=== PATIENT | female | born 2000 | race Caucasian/White ===

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

== ENCOUNTER 2019-05-11 18:26 | Emergency (ER) | payer OTHER ==
[2019-05-11 18:54] VITALS: BP 130/70; PULSE 86; TEMP 99.6; BMI 26.2
--- NOTE | 2019-05-11 18:54 | PDOC ---
Rapid Medical Evaluation Chief Complaint: Cold Symptoms Time Seen by Provider: 05/11/19 18:51 Medical Evaluation: Allergies Allergy/AdvReac Type Severity Reaction Status Date / Time No Known Allergies Allergy Verified 03/24/17 11:21 05/11/19 18:52 This patient had rapid medical evaluation in triage cc:flu-like symptoms HPI:reports ill contact, sisters diagnosed + flu yesterday Patient reports fever, bodyaches, runny nose today PE: appears well unlabored breathing Orders: none This patient will proceed to ed for further evaluation. Discharge Disposition - Diagnosis Flu-like symptoms - Discharge Dispostion Disposition: HOME Condition at time of disposition: Good - Prescriptions Prescriptions: Ibuprofen 600 mg PO QID #20 tablet Oseltamivir Phosphate [Tamiflu -] 75 mg PO BID #10 capsule Oseltamivir Phosphate [Tamiflu -] 75 mg PO BID #10 capsule - Referrals Referrals: Tanvi Chowdhury MD [Primary Care Provider] - Call tomorrow - Patient Instructions Printed Discharge Instructions: DI for Viral Upper Respiratory Infection -- Adult Additional Instructions: Drink plenty fluids and rest Take medication as prescribed Wash hands frequently Limit contact with others - Post Discharge Activity Work/School Note: Back to School
--- NOTE | 2019-05-11 19:16 | PDOC ---
History of Present Illness - General Chief Complaint: Cold Symptoms Stated Complaint: FLU SYMPTOMS Time Seen by Provider: 05/11/19 18:51 History Source: Patient Exam Limitations: No Limitations - History of Present Illness Initial Comments: 05/11/19 19:09 18 year old female with no significant medical or surgical history presents with reports of fever, chills, bodyaches and headache since last night. States sister is diagnosed with the flu, she shares room with her and feels she has the same. 05/11/19 19:23 Is this a multiple visit Asthma Patient?: No Timing/Duration: reports: yesterday Severity: reports: moderate Possible Cause: Yes: allergen exposure Modifying Factors: improves with: other (medication) Associated Symptoms: reports: cough, fever/chills, muscle aches Past History - Travel Traveled outside of the country in the last 30 days: No Close contact w/someone who was outside of country & ill: No - Past Medical History Allergies/Adverse Reactions: Allergies Allergy/AdvReac Type Severity Reaction Status Date / Time No Known Allergies Allergy Verified 03/24/17 11:21 Home Medications: Ambulatory Orders Ibuprofen 600 mg PO QID #20 tablet 05/11/19 Oseltamivir Phosphate [Tamiflu -] 75 mg PO BID #10 capsule 05/11/19 Oseltamivir Phosphate [Tamiflu -] 75 mg PO BID #10 capsule 05/11/19 COPD: No Thyroid Disease: No - Immunization History Immunization Up to Date: Yes - Psycho Social/Smoking Cessation Hx Smoking History: Never smoked Have you smoked in the past 12 months: No Hx Alcohol Use: No Drug/Substance Use Hx: No Substance Use Type: None Respiratory Specific PMHX - Complaint Specific PMHX Hx Airway Support: No Hx Intubation: No Hx Smoking Exposure: No Hx Allergic Rhinitis: No Hx Pneumonia: No Hx TB (Tuberculosis): No Review of Systems - Review of Systems Able to Perform ROS?: Yes Is the patient limited Yi proficient: No Constitutional: Yes: Chills, Fever HEENTM: Yes: Nose Congestion, Throat Pain Respiratory: Yes: Cough Cardiac (ROS): No: Chest Pain, Lightheadedness ABD/GI: No: Nausea, Poor Appetite, Vomiting, Indigestion : No: Incontinence Musculoskeletal: No: Back Pain, Muscle Weakness *Physical Exam - Vital Signs Last Vital Signs Temp Pulse Resp BP Pulse Ox 99.6 F 86 16 130/70 98 05/11/19 18:49 05/11/19 18:49 05/11/19 18:49 05/11/19 18:49 05/11/19 18:49 - Physical Exam General Appearance: Yes: Nourished, Appropriately Dressed HEENT: positive: TMs Normal, Pharynx Normal Neck: positive: Supple. negative: Lymphadenopathy (R), Lymphadenopathy (L) Respiratory/Chest: positive: Lungs Clear Cardiovascular: positive: Regular Rate Neurologic: positive: Fully Oriented, Alert Medical Decision Making - Medical Decision Making 05/11/19 19:25 18 year old with no significant medical or surgical history presents with flu- like symptoms, sister tested + flu, likely the same will treat accordingly. tx with tamiflu and ibuprofen Discharge - Discharge Information Problems reviewed: Yes Clinical Impression/Diagnosis: Flu-like symptoms Condition: Good Disposition: HOME - Admission No - Additional Discharge Information Prescriptions: Ibuprofen 600 mg PO QID #20 tablet Oseltamivir Phosphate [Tamiflu -] 75 mg PO BID #10 capsule - Follow up/Referral Referrals: Tanvi Chowdhury MD [Primary Care Provider] - Call tomorrow - Patient Discharge Instructions Patient Printed Discharge Instructions: DI for Viral Upper Respiratory Infection -- Adult Additional Instructions: Drink plenty fluids and rest Take medication as prescribed Wash hands frequently Limit contact with others - Post Discharge Activity Work/Back to School Note: Back to School
== END 2019-05-11 19:41 | disposition home or self-care (01) ==
LOC: JERFT 18:26
DX: J11.1 Influenza due to unidentified influenza virus with other respiratory manifestations (principal)
CPT/HCPCS: 99283-25

== ENCOUNTER 2021-04-12 04:45 | Day surgery (SDC) | payer OTHER ==
[2021-04-11 14:04] VITALS: BMI 30.8
[2021-04-12] MEDS ORDERED: SODIUM CHLORIDE 500 ML IV SCH (10:20)
[2021-04-12 14:03] VITALS: BP 100/59; PULSE 52; TEMP 97.5
== END 2021-04-12 15:15 | disposition home or self-care (01) ==
LOC: JRADIR 04:45
PROVIDERS: ATTEND Internal Medicine Gastroenterology
PROC: 0FB03ZX Excision of Liver, Percutaneous Approach, Diagnostic (ICD-10-PCS; principal; 2021-04-12)
DX: K75.81 Nonalcoholic steatohepatitis (NASH) (principal)
CPT/HCPCS: 47000; 76942-TC; 87899; 88305-TC; 88313-TC

== ENCOUNTER 2024-04-12 22:11 | Emergency (ER) | payer OTHER ==
[2024-04-12 22:17] VITALS: RESP 18; BMI 27.4
[2024-04-12] MEDS ORDERED: ACETAMINOPHEN 325 MG TABLET (FP) ONE (22:48)
[2024-04-12] MEDS: ACETAMINOPHEN 325 MG TABLET (FP) PO ONE (22:51)
[2024-04-12 23:50] VITALS: BP 95/73; PULSE 108; TEMP 99.9
== END 2024-04-13 00:02 | disposition home or self-care (01) ==
LOC: JER 22:11
DX: J10.1 Influenza due to other identified influenza virus with other respiratory manifestations (principal); R51.9 Headache, unspecified; R09.81 Nasal congestion; R05.9 Cough, unspecified; R50.9 Fever, unspecified; M79.10 Myalgia, unspecified site; R09.82 Postnasal drip; Z20.822 Contact with and (suspected) exposure to COVID-19
CPT/HCPCS: 0241U-QW; 71046-TC-FY; 93005; 93010; 99285-25